=== PATIENT | female | born 1975 | race Caucasian/White ===

== ENCOUNTER 2019-07-01 21:38 | Emergency (ER) | payer OTHER ==
[~2019-07-01] VITALS: Ht 175.3 cm; Wt 159.1 kg
[2019-07-01] MEDS ORDERED: IBUPROFEN 600 MG TABLET PO ONE (23:45)
[2019-07-01] MEDS ORDERED: DOXYCYCLINE HYCLATE 100 MG CAPSULE PO ONE (23:45)
[2019-07-01] MEDS ORDERED: BACITRACIN 0.9 GM PACKET OINTMENT TP ONE (23:45)
[2019-07-02 01:00] VITALS: BP 145/86
== END 2019-07-02 01:27 | disposition home or self-care (01) ==
LOC: EMS 21:40
DX: L03.213 Periorbital cellulitis (principal); E66.9 Obesity, unspecified; F17.210 Nicotine dependence, cigarettes, uncomplicated; Z88.1 Allergy status to other antibiotic agents; Z90.49 Acquired absence of other specified parts of digestive tract; Z98.890 Other specified postprocedural states; Z68.43 Body mass index [BMI] 50.0-59.9, adult
CPT/HCPCS: 99406